=== PATIENT | male | born 1975 | race Caucasian/White ===

== ENCOUNTER 2016-11-05 19:38 | Emergency (ER) | payer OTHER ==
[2016-11-05 19:48] VITALS: BP 110/60; PULSE 77; TEMP 98.1; BMI 24.3
--- NOTE | 2016-11-05 20:26 | PDOC ---
History of Present Illness - General Chief Complaint: Injury Stated Complaint: YFD-INJURY Time Seen by Provider: 11/05/16 20:07 Past History - Past Medical History Allergies/Adverse Reactions: Allergies Allergy/AdvReac Type Severity Reaction Status Date / Time No Known Allergies Allergy Verified 11/05/16 19:44 Home Medications: Ambulatory Orders NK [No Known Home Medication] 11/05/16 - Immunization History Immunization Up to Date: Yes - Psycho/Social/Smoking Cessation Hx Anxiety: No Suicidal Ideation: No Smoking History: Former smoker Have you smoked in the past 12 months: No Number of Cigarettes Smoked Daily: 2 If you are a former smoker, when did you quit?: 2014 Cigars Per Day: 0 Information on smoking cessation initiated: No Hx Alcohol Use: No Drug/Substance Use Hx: No Substance Use Type: None *Physical Exam - Vital Signs Last Vital Signs Temp Pulse Resp BP Pulse Ox 98.1 F 77 15 110/60 97 11/05/16 19:44 11/05/16 19:44 11/05/16 19:44 11/05/16 19:44 11/05/16 19:44 *DC/Admit/Observation/Transfer Diagnosis at time of Disposition: Acute knee pain Qualifiers: Laterality: right Qualified Code(s): M25.561 - Pain in right knee - Discharge Dispostion Disposition: HOME Condition at time of disposition: Stable Admit: No - Patient Instructions Additional Instructions: MOTRIN 600MG 3 TIMES DAILY; SEE ORTHOPEDIST NEXT WEEK; REST - Post Discharge Activity Work/School Note: Back to Work
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
== END 2016-11-05 20:51 | disposition home or self-care (01) ==
LOC: JERFT 19:38
DX: M25.561 Pain in right knee (principal); X58.XXXA Exposure to other specified factors, initial encounter; Y93.89 Activity, other specified; Y92.89 Other specified places as the place of occurrence of the external cause; Y99.0 Civilian activity done for income or pay; Z87.891 Personal history of nicotine dependence
CPT/HCPCS: 99281-25

== ENCOUNTER 2016-12-14 09:28 | Day surgery (SDC) | payer OTHER ==
[2016-12-08 15:04] VITALS: BMI 24.3
[2016-12-14] MEDS ORDERED: BUPIVACAINE HCL/PF 0.5% (5MG/ML) 10 ML VIAL ONE (10:36)
[2016-12-14] MEDS ORDERED: LIDOCAINE 1%-EPI 1:100,000 30 ML MDV IJ ONE (10:36)
[2016-12-14] MEDS ORDERED: LIDOCAINE HCL 1%, 10 MG/ML (20ML VIAL) ONE (11:44)
[2016-12-14] MEDS ORDERED: MIDAZOLAM HCL 2 MG/2 ML SINGLE DOSE VIAL ONE (11:55)
[2016-12-14] MEDS ORDERED: PROPOFOL 20 ML ONE ×2 (12:01→12:09)
[2016-12-14] MEDS ORDERED: LIDOCAINE HCL 2% 100 MG/5 ML DISP.SYRIN ONE (12:09)
[2016-12-14] MEDS ORDERED: DEXAMETHASONE SOD PHOSPHATE 4 MG/1 ML VIAL ONE ×2 (12:24→12:25)
[2016-12-14] MEDS ORDERED: ONDANSETRON 4 MG/2 ML VIAL ONE ×2 (12:24→12:25)
[2016-12-14] MEDS ORDERED: ceFAZolin SODIUM 1 GM VIAL ONE (12:24)
[2016-12-14] MEDS ORDERED: KETOROLAC TROMETHAMINE 30 MG/1 ML VIAL ONE (12:25)
--- NOTE | 2016-12-14 12:39 | HP ---
[facility] - Chief Complaint Chief Complaint: pain right knee Limitations to Obtaining History: No Limitations - Past Medical History Allergies/Adverse Reactions: Allergies Allergy/AdvReac Type Severity Reaction Status Date / Time No Known Allergies Allergy Verified 12/14/16 10:16 - Current Medications Current Medications: Home Medications Medication Instructions Recorded NK [No Known Home Medication] 11/05/16 Satellite Physical Exam - Physical Examination Vital Signs: Vital Signs Period Temp Pulse Resp BP Sys/Nino Pulse Ox Last 24 Hr 98 F 47 16 104/68 100 Extremities: Other (+ joint line tenderness) Satellite Impression/Plan - Impression/Plan Impression: internal derangement right knee Operative Procedure: arthroscopy right knee Date to be Performed: 12/14/16
--- NOTE | 2016-12-14 12:40 | OP ---
Operative Note - Note: Operative Date: 12/14/16 Pre-Operative Diagnosis: internal derangement right knee Operation: arthroscopy right knee with partial medial and lateral meniscectomy Post-Operative Diagnosis: Same as Pre-op Surgeon: Matt Hobbs Anesthesia: General Estimated Blood Loss (mls): 0 Operative Report Dictated: Yes
[2016-12-14] MEDS ORDERED: ONDANSETRON 4 MG/2 ML VIAL IVPUSH PRN (12:58)
[2016-12-14] MEDS ORDERED: oxyCODONE HCL 5 MG TABLET PO PRN (12:58)
[2016-12-14] MEDS ORDERED: PROMETHAZINE HCL 25 MG/1 ML VIAL IVPUSH PRN (12:59)
[2016-12-14] MEDS ORDERED: LACTATED RINGERS SOLUTION 1,000 ML IV SCH (13:00)
[2016-12-14 14:51] VITALS: BP 107/66; PULSE 43; TEMP 97.3
--- NOTE | 2016-12-16 14:45 | PATH ---
Surgical Pathology Report Patient Name: TAYLER RAJAN [facility]. Rec. #: [id number] /Age/Gender: 1975 (Age: 41) / M Account: [id number] Location: [facility] AMBULATORY Taken: 12/14/2016 Received: 12/14/2016 Reported: 12/16/2016 Physicians: Matt Hobbs M.D. Specimen(s) Received RIGHT KNEE SHAVINGS Clinical History Right knee tear Final Diagnosis KNEE, RIGHT, ARTHROSCOPIC SHAVING: FIBROCARTILAGE WITH MYXOID DEGENERATIVE CHANGES, ALONG WITH PORTIONS OF SYNOVIUM AND HYALINE CARTILAGE. Electronically Signed Nas Wood M.D. Gross Description Received in formalin, labeled "right knee shavings," is a 3.5 x 3.0 x 0.3 cm. aggregate of weathers-yellow soft tissue fragments. A solar sales representative and assessor portion is submitted in one cassette. /12/15/201612/15/2016
--- NOTE | 2016-12-24 08:21 | OP ---
DATE OF OPERATION: 12/14/2016 PREOPERATIVE DIAGNOSIS: Internal derangement right knee. POSTOPERATIVE DIAGNOSIS: Internal derangement right knee. PROCEDURE: Arthroscopy right knee, partial medial and lateral meniscectomy. SURGICAL ATTENDING: Matt Hobbs MD ANESTHESIA: General with LMA. CLOSURE: 4-0 nylon. COMPLICATIONS: None. CONDITION: To recovery room in stable condition. LOCATION OF PROCEDURE: [facility] DESCRIPTION OF PROCEDURE: The patient was taken to the operating room on December 14, 2016. General anesthesia with LMA was administered by the anesthesiologist. The right lower extremity was prepped and draped in the usual sterile fashion. Superolateral and mediolateral infrapatellar portal sites were infiltrated with 1% Xylocaine with epinephrine. Superolateral port was made with 15 blade and blunt trocar. The knee was aspirated and inflated with a cocktail of 10 mL of 1% Xylocaine, 10 mL of 0.5% Marcaine, and 20 mL of arthroscopic saline. Medial and lateral infrapatellar ports were then made with a 15 blade and blunt trocar. The scope was placed in the lateral infrapatellar port up to suprapatellar pouch. The pouch was visualized to be clean. The medial and lateral gutters were visualized to be clean. The undersurface of the patella and trochlea were visualized to be intact. With valgus stress on the knee, the medial compartment and medial meniscus was visualized and probed and found to have a complex tear of the posterior horn. This was debrided back to normal, stable meniscal tissue using a meniscal biter and arthroscopic shaver. The medial femoral condyle was run and found to be intact as was the medial tibial plateau. At 90 degrees, the ACL was visualized and probed and found to be intact. In figure-4 position lateral compartment was entered. Lateral meniscus was visualized and probed and found to have a tear of its midportion. This was debrided back to normal, stable, meniscal tissue with meniscal biter and arthroscopic shaver. Lateral and femoral condyles was run and found to be intact as was the lateral tibial plateau. The knee was irrigated with copious amounts of irrigation. The portal was closed using 4-0 nylon. Prior to closure, 20 mL of 0.5% Marcaine was infused into the knee for postoperative analgesia. A sterile pressure dressing was placed over the knee. The patient was awakened from anesthesia and transferred to recovery in stable condition with no complications. Estimated blood loss negligible. Jimbo BATISTA/[id number]
== END 2016-12-14 14:45 | disposition home or self-care (01) ==
LOC: FASU 09:28
PROVIDERS: ATTEND Orthopaedic Surgery
PROC: 0SBC4ZZ Excision of Right Knee Joint, Percutaneous Endoscopic Approach (ICD-10-PCS; 2016-12-14)
PROC: 0SBC4ZZ Excision of Right Knee Joint, Percutaneous Endoscopic Approach (ICD-10-PCS; principal; 2016-12-14 11:58)
DX: S83.241A Other tear of medial meniscus, current injury, right knee, initial encounter (principal); S83.281A Other tear of lateral meniscus, current injury, right knee, initial encounter; X58.XXXA Exposure to other specified factors, initial encounter; Y93.9 Activity, unspecified; Y92.9 Unspecified place or not applicable
CPT/HCPCS: 88304-TC; 94760

== ENCOUNTER 2021-01-06 15:24 | Emergency (ER) | payer OTHER ==
[2021-01-06 15:33] VITALS: BP 148/74; PULSE 55; TEMP 98.2; BMI 24.3
[2021-01-06] MEDS ORDERED: IBUPROFEN 600 MG TABLET (FP) PO ONE ×2 (16:06→16:19)
== END 2021-01-06 17:09 | disposition home or self-care (01) ==
LOC: JERFT 15:24
DX: M54.2 Cervicalgia (principal)
CPT/HCPCS: 99284-25

== ENCOUNTER 2022-11-24 04:42 | Emergency (ER) | payer BC, OTHER ==
[2022-11-24 04:50] VITALS: RESP 18; BMI 26.2
[2022-11-24] MEDS ORDERED: ACETAMINOPHEN 500 MG TABLET (FP) PO ONE (05:32)
[2022-11-24] MEDS ORDERED: ACETAMINOPHEN 325 MG TABLET (FP) ONE (05:40)
[2022-11-24 07:50] VITALS: BP 125/86; PULSE 84; TEMP 97.7
== END 2022-11-24 07:50 | disposition home or self-care (01) ==
LOC: JER 04:42
DX: R07.81 Pleurodynia (principal); W18.30XA Fall on same level, unspecified, initial encounter
CPT/HCPCS: 71046-TC-FY; 71101-TC-RT-FY; 99283-25